=== PATIENT | female | born 1960 | race Caucasian/White ===

== ENCOUNTER 2020-07-10 22:51 | Emergency (ER) | payer OTHER, BC ==
[~2020-07-10 22:51] MED LIST: Iopamidol-370 76% 500 ML 1 ML ONE
[2020-07-10] MEDS ORDERED: Fentanyl 100 MCG/2 ML VIAL ONE (22:57)
[2020-07-10 23:02] LABS: #Basophils 0.1 thou/uL (0.0-0.2); #Eosinphils 0.1 thou/uL (0.0-0.7); #Monocytes 0.6 thou/uL (0.11-0.59); #Neutrophils 2.6 thou/uL (1.40-6.50); %Basophils 1.5 % (0.0-1.0); %Eosinophils 1.6 % (0.0-10.0); %Lymphocytes 47.2 % (21.0-51.0); %Monocytes 9.3 % (0.0-10.0); %Neutrophils 40.5 % (42.0-75.0); Hemoglobin 13.6 g/dL (12.0-16.0); Mean Corpuscular Hemoglobin 32.6 pg (27.0-31.0); Mean Corpuscular Volume 96.1 fL (78.0-98.0); Mean Platelet Volume 7.4 fL (7.4-10.4); Platelet Count 213 thou/uL (130-400); Red Blood Cell (RBC) Count 4.18 mill/uL (4.20-5.40); White Blood Cell (WBC) Count 6.4 thou/uL (4.8-10.8)
[2020-07-10 23:14] LABS: PTT 28.3 sec (22.9-36.1); Prothrombin Time 13.4 sec (12.0-14.7)
[2020-07-10 23:19] LABS: ALT (SGPT) 18 U/L (8-55); AST (SGOT) 19 U/L (5-34); Albumin 3.8 g/dL (3.5-5.0); Alkaline Phosphatase 60 U/L (40-110); Anion Gap 16 mmol/L (10-20); BUN (Urea Nitrogen) 17 mg/dL (9.8-20.1); Bilirubin, Total 1.3 mg/dL (0.2-1.2); Calc. Creatinine Clearance 0 mL/min (70-130); Carbon Dioxide 22 mmol/L (22-29); Chloride 107 mmol/L (98-107); Globulin 2.3 g/dL (2.4-3.5); Glucose 110 mg/dL (70-105); Lipase 11 U/L (8-78); Potassium 3.7 mmol/L (3.5-5.1); Protein, Total 6.1 g/dL (6.0-8.3); Sodium 141 mmol/L (136-145)
[2020-07-10] MEDS ORDERED: Bupivacaine 0.5% 10 ML VIAL ONE (23:51)
[2020-07-10] MEDS ORDERED: Bupivacaine 0.25% 10 ML VIAL ONE (23:52)
[2020-07-10] MEDS ORDERED: Midazolam HCl 2 mg/2 ml Vial ONE (23:58)
[2020-07-11] MEDS ORDERED: Ketamine 50 MG/ML (10ML VIAL) ONE (00:37)
== END 2020-07-11 02:10 | disposition home or self-care (01) ==
LOC: ERS 22:51
DX: S52.571A Other intraarticular fracture of lower end of right radius, initial encounter for closed fracture (principal); S52.611A Displaced fracture of right ulna styloid process, initial encounter for closed fracture; I10 Essential (primary) hypertension; Z79.899 Other long term (current) drug therapy; V43.52XA Car driver injured in collision with other type car in traffic accident, initial encounter
CPT/HCPCS: 25605; 36415; 70450; 71045; 71260; 72125; 74177; 80053; 83605; 83690; 85025; 85610; 85730; 86850; 86900; 86901; 96374; 96375; G0390; J2250; J3010; J3490; Q9967; S0020